=== PATIENT | female | born 2000 | race Hispanic/Latino ===

== ENCOUNTER 2022-09-15 15:17 | Inpatient (IN) | payer MEDICAID, OTHER, SELFPAY ==
[2022-09-15 16:10] VITALS: BMI 26.3
[2022-09-15] MEDS ORDERED: Promethazine HCl 25 MG/ML VIAL IM PRN (16:41)
[2022-09-15] MEDS ORDERED: hydrALAZINE 20 MG/ML VIAL SLOW IVP PRN ×2 (16:41→22:10)
[2022-09-15] MEDS ORDERED: Ondansetron PF 4 MG/2 ML Vial IVP PRN (16:41)
[2022-09-15] MEDS ORDERED: Lidocaine 1% (PF) 30 ML VIAL SC PRN (16:41)
[2022-09-15] MEDS ORDERED: Lactated Ringer's 1,000 ML IV SCH (16:45)
[2022-09-15] MEDS ORDERED: NS w/ Oxytocin 30 units 500 ML IV SCH (16:45)
[2022-09-15 17:18] LABS: Mean Corpuscular HGB CONC 31.3 g/dL (32.0-36.0); Mean Corpuscular Hemoglobin 23.8 pg (27.0-33.0); Mean Platelet Volume 10.9 fl (7.4-10.4); Platelet Count 310 10x3/uL (150-450); Red Blood Cell (RBC) Count 4.63 10x6/uL (3.90-5.03); White Blood Cell (WBC) Count 11.8 10x3/uL (3.5-10.5)
[2022-09-15 17:51] LABS: HBSAg Index 0.18 S/CO (0-0.99); Hep B Surf Ag - L&D Non-Reactive S/CO (NonReactive)
[2022-09-15 18:00] LABS: Syphilis Antibody Nonreactive (Nonreactive); Syphilis Antibody Index 0.06 S/CO (<1.00 Non-Reactive)
[2022-09-15] MEDS ORDERED: Misoprostol 100 MCG TAB ONE (21:07)
[2022-09-15] MEDS ORDERED: Tranexamic Acid 1,000 MG/10 ML VIAL ONE (21:07)
[2022-09-15] MEDS ORDERED: fentaNYL 50 mcg/mL 1 mL Vial ONE (21:59)
[2022-09-15] MEDS ORDERED: Carboprost 250 MCG/ML AMP ONE (22:02)
[2022-09-15] MEDS ORDERED: Diphenoxylate HCl/Atropine Tablet PO PRN (22:03)
[2022-09-15] MEDS ORDERED: Boostrix 0.5 ML (Tdap) VIAL (>/=7 yrs of age) IM ONE (22:10)
[2022-09-15] MEDS ORDERED: Bisacodyl 10 MG SUPP PR PRN (22:10)
[2022-09-15] MEDS ORDERED: Milk Of Magnesia 30 ML UDCUP PO PRN (22:10)
[2022-09-15] MEDS ORDERED: Carboprost 250 MCG/ML AMP IM SCH (22:15)
[2022-09-15] MEDS: Ampicillin/Sulbactam 3 GM in Sodium Chloride 0.9% 100 ML IVPB SCH (22:30)
[2022-09-15] MEDS ORDERED: fentaNYL 50 mcg/mL 1 mL Vial SLOW IVP SCH (22:30)
[2022-09-16] MEDS ORDERED: Ibuprofen 800 MG TAB PO SCH ×2 (00:15→08:15)
[2022-09-16 05:02] LABS: #Basophils 0.1 10x3/uL (0.0-0.2); #Neutrophils 15.8 10x3/uL (1.5-8.4); %Basophils 0.4 % (0.0-2.0); %Eosinophils 0.2 % (0.0-6.0); %Monocytes 5.2 % (0.0-10.0); %Neutrophils 83.5 % (40.0-75.0); Mean Corpuscular Hemoglobin 23.6 pg (27.0-33.0); Mean Corpuscular Volume 76.2 fl (81.6-98.3); Mean Platelet Volume 10.8 fl (7.4-10.4); Platelet Count 270 10x3/uL (150-450); RBC Distribution Width 20.6 % (11.5-14.5); Red Blood Cell (RBC) Count 4.24 10x6/uL (3.90-5.03)
[2022-09-16] MEDS: Ampicillin/Sulbactam 3 GM in Sodium Chloride 0.9% 100 ML IVPB SCH ×2 (06:40→14:04)
[2022-09-16] MEDS: Ibuprofen 800 MG TAB PO SCH ×3 (09:16→21:27)
[2022-09-16] MEDS: Ferrous Sulfate 325 MG TAB PO SCH ×2 (09:45→17:01)
[2022-09-16] MEDS: Docusate 100 MG CAP PO SCH ×2 (09:46→21:27)
[2022-09-16] MEDS ORDERED: Witch Hazel-Glycerin 1 EACH JAR TOP PRN (16:01)
[2022-09-17] MEDS: Ibuprofen 800 MG TAB PO SCH ×2 (05:52→13:30)
[2022-09-17] MEDS: Ampicillin/Sulbactam 3 GM in Sodium Chloride 0.9% 100 ML IVPB SCH (05:53)
[2022-09-17 08:04] VITALS: BP 100/59; TEMP 98.4
[2022-09-17] MEDS: Docusate 100 MG CAP PO SCH (08:57)
[2022-09-17] MEDS: Ferrous Sulfate 325 MG TAB PO SCH (08:57)
== END 2022-09-17 16:10 | disposition home or self-care (01) | DRG 807 ==
LOC: CSHLD/OP 15:17 → CSHLD 17:24 → CSHPED 09-16 00:02
PROVIDERS: ADMIT Obstetrics & Gynecology; ATTEND Obstetrics & Gynecology
PROC: 10E0XZZ Delivery of Products of Conception, External Approach (ICD-10-PCS; principal; 2022-09-15)
PROC: 10907ZC Drainage of Amniotic Fluid, Therapeutic from Products of Conception, Via Natural or Artificial Opening (ICD-10-PCS; 2022-09-15)
DX: O71.82 Other specified trauma to perineum and vulva (principal); Z37.0 Single live birth; Z3A.39 39 weeks gestation of pregnancy; Z79.899 Other long term (current) drug therapy
CPT/HCPCS: 36415; 85025; 85027; 86780; 86850; 86900; 86901; 87340; 88307; 99285; J0295; J2405; J2590; J3010; J3490